=== PATIENT | female | born 1975 | race Caucasian/White ===

== ENCOUNTER → 2017-02-01 | Outpatient (REF) | payer BC | LOC: M SFHCPLAZ 13:58 | PROVIDERS: ATTEND Family Medicine | DX: E03.9 Hypothyroidism, unspecified (principal) ==

== ENCOUNTER → 2017-02-11 | Outpatient (REF) | payer BC ==
[2017-02-11 19:55] LABS: FREE T4 1.35 NG/DL (0.76-1.46)
== END ==
LOC: M SFHCADAM 11:46
PROVIDERS: ATTEND Family Medicine
DX: E03.9 Hypothyroidism, unspecified (principal)

== ENCOUNTER → 2019-02-09 | Outpatient (REF) | payer BC ==
[2019-02-09 16:32] LABS: FREE T4 1.67 NG/DL (0.76-1.46); THYROID STIMULATING HORMONE 0.347 uIU/ML (0.358-3.740)
== END ==
LOC: M SFHCPLAZ 14:58
DX: E03.9 Hypothyroidism, unspecified (principal)

== ENCOUNTER → 2019-10-31 | Outpatient (CLI) | payer BC ==
[2019-10-31 16:58] LABS: BLOOD UREA NITROGEN 18 MG/DL (7-18); CALCIUM LEVEL 8.4 MG/DL (8.5-10.1); CARBON DIOXIDE LEVEL 25 MEQ/L (21-32); CHLORIDE LEVEL 108 MEQ/L (98-107); CHOLESTEROL LEVEL 185 MG/DL (<200); CHOLESTEROL RISK RATIO 2.151 (<5); CREATININE FOR GFR 0.75 MG/DL (0.55-1.30); FREE T4 1.12 NG/DL (0.76-1.46); GLOMERULAR FILTRATION RATE > 60.0 (>58); GLUCOSE, FASTING 71 MG/DL (70-100); HDL CHOLESTEROL 86 MG/DL (>40); LDL CHOLESTEROL 75 MG/DL (<100); NON-HDL-C 99 MG/DL; POTASSIUM SERUM 4.1 MEQ/L (3.5-5.1); SODIUM LEVEL 141 MEQ/L (136-145); TRIGLYCERIDES LEVEL 119 MG/DL (<150)
== END ==
LOC: M WUC 12:38
PROVIDERS: ATTEND Internal Medicine
DX: E03.8 Other specified hypothyroidism (principal); E66.9 Obesity, unspecified; Z68.30 Body mass index [BMI] 30.0-30.9, adult

== ENCOUNTER → 2020-03-13 | Outpatient (CLI) | payer BC ==
[2020-03-13 18:40] LABS: FREE T4 1.6 NG/DL (0.76-1.46); THYROID STIMULATING HORMONE 0.197 uIU/ML (0.358-3.740)
== END ==
LOC: M WUC 13:09
PROVIDERS: ATTEND Internal Medicine
DX: E03.9 Hypothyroidism, unspecified (principal)

== ENCOUNTER → 2020-10-31 | Outpatient (CLI) | payer BC ==
[2020-10-31 16:04] LABS: CALCIUM LEVEL 8.8 MG/DL (8.5-10.1); FREE T4 1.4 NG/DL (0.76-1.46); THYROID STIMULATING HORMONE 1.92 uIU/ML (0.358-3.740); TOTAL 25(OH) VITAMIN D 30.8 NG/ML (30.0-100.0); TOTAL PROTEIN 6.8 GM/DL (6.4-8.2)
== END ==
LOC: M WUC 13:23
PROVIDERS: ATTEND Student in an Organized Health Care Education/Training Program
DX: Z00.00 Encounter for general adult medical examination without abnormal findings (principal)

== ENCOUNTER → 2022-09-08 | Outpatient (CLI) | payer BC | LOC: M RAD 08:45 | PROVIDERS: ATTEND Student in an Organized Health Care Education/Training Program | DX: M79.89 Other specified soft tissue disorders (principal) ==

== ENCOUNTER → 2023-04-08 | Outpatient (CLI) | payer BC ==
[2023-04-08 14:13] LABS: BASO % 0.5 % (0.0-1.0); EOS # 0.1 10^3/uL (0.0-0.5); EOS % 3.2 % (0.0-3.0); HEMATOCRIT 26.3 % (36.0-47.0); LYMPH # 1.2 10^3/uL (1.5-5.0); LYMPH % 32.3 % (24.0-44.0); MEAN CORPUSCULAR HEMOGLOBIN 17.1 pg (27.0-33.0); MEAN CORPUSCULAR HGB CONC 26.6 g/dl (32.0-36.5); MEAN CORPUSCULAR VOLUME 64.3 fl (80.0-96.0); MONO # 0.5 10^3/uL (0.0-0.8); MONO % 12.4 % (2.0-8.0); NEUTROPHILS # 1.9 10^3/uL (1.5-8.5); NEUTROPHILS % 51.3 % (36.0-66.0); PLATELET COUNT, AUTOMATED 190 10^3/uL (150-450); RED BLOOD COUNT 4.09 10^6/uL (4.00-5.40); WHITE BLOOD COUNT 3.7 10^3/uL (4.0-10.0)
[2023-04-08 14:18] LABS: ALBUMIN 3.8 G/DL (3.2-5.2); ALKALINE PHOSPHATASE 51 U/L (46-116); ALT/SGPT 15 U/L (7.0-40); AST/SGOT 17 U/L (<34); BILIRUBIN,TOTAL 0.6 MG/DL (0.3-1.2); BLOOD UREA NITROGEN 12 MG/DL (9-23); CALCIUM LEVEL 8.5 MG/DL (8.5-10.1); CARBON DIOXIDE LEVEL 27 MMOL/L (20-31); CHLORIDE LEVEL 108 MMOL/L (98-107); CHOLESTEROL LEVEL 165 MG/DL (<200); CHOLESTEROL RISK RATIO 1.98 (<5); CREATININE FOR GFR 0.72 MG/DL (0.55-1.30); GLOMERULAR FILTRATION RATE > 60.0 (>51); GLUCOSE, FASTING 86 MG/DL (60-100); HDL CHOLESTEROL 83.1 MG/DL (>40); LDL CHOLESTEROL 71.7 MG/DL (<100); NON-HDL-C 81.9 MG/DL; PHOSPHORUS LEVEL 4.2 MG/DL (2.5-4.9); POTASSIUM SERUM 4.2 MMOL/L (3.5-5.1); SODIUM LEVEL 140 MMOL/L (136-145); TOTAL PROTEIN 6.4 G/DL (5.7-8.2); TRIGLYCERIDES LEVEL 51 MG/DL (<150)
[2023-04-08 14:20] LABS: FREE T4 0.93 NG/DL (0.89-1.76); PTH INTACT 50.7 PG/ML (18.5-88.0); THYROID STIMULATING HORMONE 26.999 uIU/ML (0.55-4.78); TOTAL 25(OH) VITAMIN D 14.6 NG/ML (20.0-100.0)
== END ==
LOC: M PLALAB 11:03
PROVIDERS: ATTEND Student in an Organized Health Care Education/Training Program
DX: E89.0 Postprocedural hypothyroidism (principal)

== ENCOUNTER → 2025-07-16 | Outpatient (REF) | payer OTHER ==
[2025-07-16 15:15] LABS: PLATELET COUNT, AUTOMATED 91 10^3/uL (150-450)
[2025-07-16 15:25] LABS: FREE T4 1.60 NG/DL (0.89-1.76)
[2025-07-16 15:28] LABS: ALT/SGPT 17 U/L (7.0-40); AST/SGOT 20 U/L (<34); CALCIUM LEVEL 8.5 MG/DL (8.5-10.1); CARBON DIOXIDE LEVEL 26 MMOL/L (20-31); CHLORIDE LEVEL 108 MMOL/L (98-107); CHOLESTEROL LEVEL 149 MG/DL (<200); CHOLESTEROL RISK RATIO 1.79 (<5); CREATININE FOR GFR 0.64 MG/DL (0.55-1.30); GLOMERULAR FILTRATION RATE > 90.0 (>51); LDL CHOLESTEROL 58.7 MG/DL (<100); NON-HDL-C 66.1 MG/DL; POTASSIUM SERUM 3.7 MMOL/L (3.5-5.1); SODIUM LEVEL 140 MMOL/L (136-145); TRIGLYCERIDES LEVEL 37 MG/DL (<150)
== END ==
LOC: M SFHCPLAZ 09:38
PROVIDERS: ATTEND Family Medicine
DX: Z00.00 Encounter for general adult medical examination without abnormal findings (principal)

== ENCOUNTER → 2025-07-17 | Outpatient (REF) | payer OTHER | LOC: M SFHCPLAZ 08:35 | PROVIDERS: ATTEND Family Medicine | DX: Z53.9 Procedure and treatment not carried out, unspecified reason (principal) ==

== ENCOUNTER 2025-09-03 14:32 | Outpatient (CLI) | payer OTHER ==
[~2025-09-03] VITALS: Ht 172.7 cm; Wt 86.4 kg
[~2025-09-03 14:32] MED LIST: ALBUTEROL SULFATE 2.5 MG/0.5 ML INH CONCENTRATE NEB SOLN INH PRN; EPINEPHrine INJ 1 MG/ML 1ML AMP IM PRN; diphenhydrAMINE 50 MG/ML VIAL IV PRN
[2025-09-03 15:10] VITALS: BP 127/68; O2SAT 98
[2025-09-03] MEDS: IRON SUCROSE 200MG IVP IV ONE (15:12)
[2025-09-03 16:10] VITALS: BP 122/58; O2SAT 99
== END 2025-09-03 16:10 | disposition home or self-care (01) ==
LOC: M INFU 14:32
PROVIDERS: ATTEND Family Medicine
DX: D50.9 Iron deficiency anemia, unspecified (principal)
CPT/HCPCS: 96374; J1756

== ENCOUNTER 2025-09-10 14:48 | Outpatient (CLI) | payer OTHER ==
[~2025-09-10] VITALS: Ht 172.7 cm; Wt 86.0 kg
[2025-09-10 15:10] VITALS: BP 112/53; O2SAT 98
[2025-09-10] MEDS: IRON SUCROSE 200MG IVP IV ONE (15:15)
[2025-09-10] MEDS ORDERED: IRON SUCROSE 200MG IVP IV ONE (15:30)
[2025-09-10 16:00] VITALS: BP 111/58; O2SAT 100
== END 2025-09-10 16:00 | disposition home or self-care (01) ==
LOC: M INFU 14:48
PROVIDERS: ATTEND Family Medicine
DX: D50.9 Iron deficiency anemia, unspecified (principal)
CPT/HCPCS: 96374; J1756

== ENCOUNTER 2025-09-17 14:28 | Outpatient (CLI) | payer OTHER ==
[~2025-09-17] VITALS: Ht 172.7 cm; Wt 83.0 kg
[2025-09-17] MEDS: IRON SUCROSE 200MG IVP IV ONE (14:53)
[2025-09-17 14:55] VITALS: BP 159/88; O2SAT 100
[2025-09-17 15:17] VITALS: BP 127/62; O2SAT 100
== END 2025-09-17 15:20 ==
LOC: M INFU 14:28
PROVIDERS: ATTEND Family Medicine
DX: D50.9 Iron deficiency anemia, unspecified (principal)
CPT/HCPCS: 96374; J1756

== ENCOUNTER 2025-09-24 14:35 | Outpatient (CLI) | payer OTHER ==
[~2025-09-24] VITALS: Ht 172.7 cm; Wt 86.4 kg
[2025-09-24 14:35] VITALS: BP 119/55; O2SAT 99
[2025-09-24] MEDS: IRON SUCROSE 200MG IVP IV ONE (14:49)
[2025-09-24 15:14] VITALS: BP 119/84; O2SAT 100
== END 2025-09-24 15:25 | disposition home or self-care (01) ==
LOC: M INFU 14:35
PROVIDERS: ATTEND Family Medicine
DX: D50.9 Iron deficiency anemia, unspecified (principal)
CPT/HCPCS: 96374; J1756

== ENCOUNTER 2025-10-01 14:36 | Outpatient (CLI) | payer OTHER ==
[~2025-10-01] VITALS: Ht 175.3 cm; Wt 86.3 kg
[2025-10-01 14:50] VITALS: BP 175/79; O2SAT 99
[2025-10-01] MEDS: IRON SUCROSE 200MG IVP IV ONE (15:02)
[2025-10-01 15:30] VITALS: BP 131/62; O2SAT 99
== END 2025-10-01 15:30 | disposition home or self-care (01) ==
LOC: M INFU 14:36
PROVIDERS: ATTEND Family Medicine
DX: D50.9 Iron deficiency anemia, unspecified (principal)
CPT/HCPCS: 96374; J1756